=== PATIENT | female | born 2000 | race Caucasian/White ===

== ENCOUNTER 2022-08-03 20:20 | Emergency (ER) | payer OTHER, SELFPAY ==
[2022-08-03 20:50] VITALS: BP 132/96; PULSE 98; RESP 18; TEMP 36.9; O2SAT 98; BMI 27.3
[2022-08-03] MEDS: 0.9 % SODIUM CHLORIDE 1000 ml 1,000 ML IV (21:27)
[2022-08-03 21:31] VITALS: BP 127/94; PULSE 87; RESP 14; O2SAT 97
[2022-08-03 21:31] LABS: Basophils Absolute Auto 0.03 K/uL (0.00-0.30); Basophils Percent Auto 0.3 % (0.0-3.0); Eosinophils Absolute Auto 0.07 K/uL (0.00-0.50); Eosinophils Percent Auto 0.7 % (0.0-7.0); Hematocrit 37.8 % (33.0-51.0); Hemoglobin* 13.5 gm/dL (12.0-16.0); Immature Granulocytes Abs Auto 0.03 K/uL (0.00-0.30); Lymphocytes Absolute Auto 2.25 K/uL (0.90-2.90); Lymphocytes Percent Auto 21.9 % (20-44); Mean Corpuscular HGB Conc 36 gm/dL (32-36); Mean Corpuscular Hemoglobin 32 pg (26-34); Mean Corpuscular Volume 89 fL (80-100); Monocytes Percent Auto 6.7 % (0.0-11.0); Neutrophils Absolute Auto 7.21 K/uL (1.7-7.0); Neutrophils Percent Auto 70.1 % (42.0-72.0); Platelet Count* 358 K/uL (140-440); RDW Coefficient of Variation % 12.1 % (11.5-15.5); Red Blood Count 4.23 m/uL (4.00-5.20); White Blood Count* 10.28 K/uL (4.50-11.00)
[2022-08-03 21:47] LABS: Slide Review Reflex No
[2022-08-03 21:56] LABS: Albumin* 4.9 g/dL (3.3-5.0); Chloride* 105 mmol/L (96-114)
[2022-08-03 21:57] LABS: Potassium* 3.9 mmol/L (3.6-5.1); Sodium* 136 mmol/L (135-149)
[2022-08-03 21:59] LABS: Amylase* 70 U/L (18-89); Aspartate Amino Transferase* 22 U/L (12-35); Bilirubin Total* 1.2 mg/dL (0.1-1.5); Carbon Dioxide* 21 mmol/L (20-32); Creatinine* 0.6 mg/dL (0.5-1.5); Est. Creatinine Clearance* 106.54; Estimated Glomerular Filt Rate 131 ml/min; Total Protein* 7.6 g/dL (6.0-8.3)
[2022-08-03 22:00] LABS: Alanine Aminotransferase* 23 U/L (4-35); Alkaline Phosphatase* 65 U/L (40-150); Blood Urea Nitrogen* 11 mg/dL (5-24); Glucose* 97 mg/dL (60-115)
[2022-08-03 22:38] VITALS: BP 123/83; BP 130/95; BP 135/97; PULSE 84; PULSE 91
--- NOTE | 2022-08-03 22:42 | ED_ITS ---
HPI - General Adult General Chief complaint: Unspecified Complaint, Adult Stated complaint: DIZZY,NAUSEA,FEVERISH Time Seen by Provider: 08/03/22 21:00 History of Present Illness HPI narrative: Pt is a 22 year old woman who is not sexually active who presents with nausea, general malaise, fatigue and dizziness of several days duration. No fever or chills. She tested negative for COVID 19 in the dorm today and is I believe vaccinated for COVID 19. Pt has no abd pain, dysuria, cough, congestion or vertigo. Pt's mother is an OBGYN who called her in Phenergan and Zofran which are note helping. No similar symptoms previously. Related Data Home Medications Medication Instructions Recorded Confirmed Prilosec 08/03/22 Zofran 08/03/22 Zoloft 08/03/22 ibuprofen 08/03/22 metformin 08/03/22 Allergies Allergy/AdvReac Type Severity Reaction Status Date / Time No Known Drug Allergies Allergy Verified 08/03/22 20:53 Review of Systems Status of ROS: Reports: 10 or more systems reviewed and unremarkable except as noted in History and below PFSH PFS Social History Smoking Status: Never smoker How often do you have a drink containing alcohol: never AUDIT-C Alcohol total score: 0 Non-prescribed substance use: denies use Exam Narrative: Exam Narrative: EXAM GENERAL: PATIENT APPEARS COMFORTABLE AND WELL. EYES: NO SCLERAL ICTERUS. ENT: TYMPANIC MEMBRANES AND OROPHARYNX NORMAL. THYROID: NO THYROID NODULES OR THYROMEGALY. LYMPH: NO SUPRACLAVICULAR OR CERVICAL LYMPHADENOPATHY. SKIN: VISIBLE SKIN SEEN DURING EXAM NORMAL OR WITH BENIGN PROCESS ONLY. EXT: NO DEPENDENT LOWER EXTREMITY PEDAL EDEMA. HEART: REGULAR RATE AND RHYTHM WITH NO MURMURS, RUBS, OR GALLOPS. LUNGS: CLEAR TO AUSCULTATION BILATERALLY WITH NO CRACKLES OR WHEEZES. ABD: SOFT, NON TENDER, NON DISTENDED. PSYCH: GOOD EYE CONTACT, SPEECH IS NOT PRESSURED. Const: Vital Signs, click to edit/add: Vital Signs - 24 hr 08/03/22 20:50 08/03/22 21:31 08/03/22 22:38 Temperature 98.4 F Pulse Rate [Left P ulse Oximeter] 98 87 Pulse Rate [Pulse Oximeter] 84 Pulse Rate [orthos tatic sitting Puls e Oximeter] 91 Pulse Rate [orthos tatic standing Pul se Oximeter] 91 Respiratory Rate 18 14 Blood Pressure [Ri ght Upper Arm] 132/96 H 127/94 H Blood Pressure [or thostatic lying Ri ght Arm] 123/83 Blood Pressure [or thostatic sitting Right Arm] 130/95 H Blood Pressure [or thostatic standing Right Arm] 135/97 H Pulse Oximetry 98 97 Oxygen Delivery Me thod Room Air Course Course Hospital Course: Pt seen and examined. Case discussed with parents. Reevaluation(s) Reevaluation #1: Orthostatics negative. CBC, CMP, Amylase normal. Triple swab pending Time: 22:46 Vital Signs Vital signs: Initial Vital Signs Temperature 98.4 F 08/03/22 20:50 Temperature Source Temporal Artery Scan 08/03/22 20:50 Pulse Rate 98 08/03/22 20:50 Respiratory Rate 18 08/03/22 20:50 Blood Pressure 132/96 H 08/03/22 20:50 Blood Pressure Mean 108 08/03/22 20:50 Blood Pressure Position Supine 08/03/22 20:50 Pulse Oximetry 98 08/03/22 20:50 Oxygen Delivery Method 08/03/22 20:50 Vital Signs Temperature 98.4 F 08/03/22 20:50 Pulse Rate 98 08/03/22 20:50 Respiratory Rate 18 08/03/22 20:50 Blood Pressure 132/96 H 08/03/22 20:50 Pulse Oximetry 98 08/03/22 20:50 Oxygen Delivery Method 08/03/22 20:50 Temperature 98.4 F 08/03/22 20:50 Pulse Rate 84 08/03/22 22:38 Respiratory Rate 14 08/03/22 21:31 Blood Pressure 123/83 08/03/22 22:38 Pulse Oximetry 97 08/03/22 21:31 Oxygen Delivery Method 08/03/22 20:50 Medical Decision Making MDM Narrative Medical decision making narrative: Pt is a healthy 22 year old that comes in with nausea for the past several days. No other significant symptoms. Pt on phenergan and zofran. Pt labs reassuring. Viral swab pending No orthostasis. Pt would like to try it at home. Differential Diagnosis Differential Diagnosis: Viral syndrome, labrynthitis, diabetes, Lab Data Labs: Lab Results 08/03/22 08/03/22 Range/Units 21:20 21:20 WBC 10.28 (4.50-11.00) K/uL RBC 4.23 (4.00-5.20) m/uL Hgb 13.5 (12.0-16.0) gm/dL Hct 37.8 (33.0-51.0) % MCV 89 (80-100) fL MCH 32 (26-34) pg MCHC 36 (32-36) gm/dL RDW Coeff of Vega 12.1 (11.5-15.5) % Plt Count 358 (140-440) K/uL Neut % (Auto) 70.1 (42.0-72.0) % Lymph % (Auto) 21.9 (20-44) % Davison % (Auto) 6.7 (0.0-11.0) % Eos % (Auto) 0.7 (0.0-7.0) % Baso % (Auto) 0.3 (0.0-3.0) % Neut # (Auto) 7.21 H (1.7-7.0) K/uL Lymph # (Auto) 2.25 (0.90-2.90) K/uL Davison # (Auto) 0.70 (0.00-0.90) K/UL Eos # (Auto) 0.07 (0.00-0.50) K/uL Baso # (Auto) 0.03 (0.00-0.30) K/uL Abs Immat Gran (auto) 0.03 (0.00-0.30) K/uL Sodium 136 (135-149) mmol/L Potassium 3.9 (3.6-5.1) mmol/L Chloride 105 (96-114) mmol/L Carbon Dioxide 21 (20-32) mmol/L BUN 11 (5-24) mg/dL Creatinine 0.6 (0.5-1.5) mg/dL Estimated Creat Clear 106.54 Estimated GFR 131 ml/min Glucose 97 (60-115) mg/dL Calcium 9.0 (8.4-10.6) mg/dL Total Bilirubin 1.2 (0.1-1.5) mg/dL AST 22 (12-35) U/L ALT 23 (4-35) U/L Alkaline Phosphatase 65 (40-150) U/L Total Protein 7.6 (6.0-8.3) g/dL Albumin 4.9 (3.3-5.0) g/dL Amylase 70 (18-89) U/L Discharge Plan Discharge Clinical Impression: Acute viral syndrome Patient Disposition: Home, Self-Care Condition: Stable Instructions: Viral Syndrome (ED) Additional Instructions: Advance diet as tolerated Continue meds as previous Follow up as needed Hydration Activity Level: No Restrictions Discharge Diet: Regular Prescriptions: No Action Zoloft metformin ibuprofen Prilosec Zofran Follow Up/Referrals: Provider,Not a Local [Primary Care Provider] - Stand Alone Forms: [facility] Info Instructions
[2022-08-03 23:07] LABS: PCR FLU A Negative PCR FLU A (Negative); PCR FLU B Negative PCR FLU B (Negative); PCR RSV Negative PCR RSV (Negative)
[2022-08-03 23:10] LABS: SARS PCR* Negative SARS-CoV-2 (Negative)
--- NOTE | 2022-08-03 23:22 | ED.NURSE ---
Spoke to Erika via telephone and gave negative results from swab.
== END 2022-08-03 23:22 | disposition home or self-care (01) ==
PROVIDERS: Emergency Provider Internal Medicine
DX: B34.9 Viral infection, unspecified (principal)
CPT/HCPCS: 36415; 80053; 82150; 85025; 87502; 87634; 87635; 96360; 99283; 99284; J7030